=== PATIENT | male | born 2000 | race Caucasian/White ===

== ENCOUNTER 2022-06-12 08:53 | Day surgery (SDC) | payer OTHER ==
[~2022-06-12] VITALS: Ht 173 cm; Wt 51.0 kg
[2022-06-12 09:39] LABS: BASOPHIL 0.3 % (0-2); EOSINOPHIL 0.1 % (0-5); HCT 46.6 % (42.0-52.0); HGB 16.7 g/dl (13.2-18.0); LYMPHOCYTE 5.2 % (15-48); MCHC 35.8 g/dL (32.0-36.0); MCV 86.6 fL (78.0-100.0); MONOCYTE 5.6 % (0-12); MPV 10.1 fL (6.0-9.5); NEUTROPHIL 88.4 % (41-80); NRBC 0; PLT 149 K/uL (150-400); RBC 5.38 M/uL (4.70-6.00); RDW 12.9 % (11.5-14.0); WBC 15.3 K/uL (4.0-10.5)
[2022-06-12 09:40] LABS: BILIRUBIN NEGATIVE (NEGATIVE); BLOOD TRACE-LYSED Ery/uL (NEGATIVE); CLARITY CLEAR (CLEAR); COLOR YELLOW (YELLOW); GLUCOSE (U) 2+ mg/dL (NORMAL); LEUKOCYTES NEGATIVE Leu/uL (NEGATIVE); NITRITE NEGATIVE (NEGATIVE); PROTEIN NEGATIVE (NEGATIVE); SPECIFIC GRAVITY 1.015 (1.001-1.030); UROBILINOGEN 0.2 mg/dL (0.2-1.0); pH 7.5 (5.0-9.0)
[2022-06-12 09:53] LABS: INR 1.19 (0.9-1.2); PROTHROMBIN TIME 14.7 SECONDS (11.9-13.9); PTT 24.5 SECONDS (24.9-34.6)
[2022-06-12 10:05] LABS: ALBUMIN 4.8 g/dL (3.4-5.0); BILIRUBIN - TOTAL 2.4 mg/dL (0.2-1.0); CREATININE 0.94 mg/dL (0.67-1.17); GLOBULIN (CALCULATION) 2.7 g/dL; POTASSIUM 4.3 mmol/L (3.5-5.1); TOTAL PROTEIN 7.5 g/dL (6.4-8.2)
[2022-06-12 10:08] LABS: CORONAVIRUS 2019 SARS-COV-2 NEGATIVE (NEGATIVE); INFLUENZA A NAA NEGATIVE (NEGATIVE)
[2022-06-12] MEDS ORDERED: ACETAMINOPHEN500 M1 PO (16:43)
[2022-06-12] MEDS ORDERED: MOTRIN600 MG PO (16:43)
[2022-06-12] MEDS ORDERED: OXY-IR 5MG5 MG PO (16:43)
[2022-06-12] MEDS ORDERED: COLACE100 MG PO (16:43)
--- NOTE | 2022-06-12 22:25 | NUR ---
PATIENT DISCHARGED ACCOMPANIED BY MOTHER IN STABLE CONDITION, DISHCARGE INSTRUCTIONS REVIEWED. INSTRUCTIONS TO CALL ON WEDNESDAY FOR FOLLOW-UP WITH DR. Adelita FERNANDO
[2022-06-13 05:06] LABS: HBSAG SCREEN Negative (Negative); HCV AB <0.1 (0.0-0.9); HEP A AB, IGM Negative (Negative); HEP B CORE AB, IGM Negative (Negative)
[2022-06-13] MEDS ORDERED: MEDROL 4MG DOSEP4 MG PO (16:41)
[2022-06-13] MEDS ORDERED: NYSTATIN SUSP1 ML/ML SSP (16:41)
== END 2022-06-12 22:30 | disposition home or self-care (01) ==
LOC: FER 08:53 → FMS 12:25 → FER 12:25 → FMS 12:25 → FAS 22:00 → FMS 22:30
PROVIDERS: Internal Medicine
DX: K35.30 Acute appendicitis with localized peritonitis, without perforation or gangrene (principal); Z20.822 Contact with and (suspected) exposure to COVID-19; Z88.0 Allergy status to penicillin
CPT/HCPCS: 36415; 76705; 80053; 80074; 81001; 83605; 83690; 84145; 85025; 85610; 85730; G0378; J1885; J2250; J2270; J2405; J2543; J2704; J3010; J7120; U0002

== ENCOUNTER 2022-06-13 15:42 | Emergency (ER) | payer OTHER ==
[~2022-06-13 15:42] MED LIST: ACETAMINOPHEN500 M1 PO; COLACE100 MG PO; MOTRIN600 MG PO; OXY-IR 5MG5 MG PO
[2022-06-13] MEDS ORDERED: MEDROL 4MG DOSEP4 MG PO (16:41)
[2022-06-13] MEDS ORDERED: NYSTATIN SUSP1 ML/ML SSP (16:41)
== END 2022-06-13 16:54 | disposition home or self-care (01) ==
LOC: FER 15:42
DX: J02.9 Acute pharyngitis, unspecified (principal); G89.18 Other acute postprocedural pain; Z88.0 Allergy status to penicillin
CPT/HCPCS: 99283; J1100; J7512